=== PATIENT | male | born 1945 | race Caucasian/White ===

== ENCOUNTER 2016-11-10 10:08 | Emergency (ER) | payer MEDICARE, MEDICAID ==
[~2016-11-10] VITALS: Ht 170.2 cm; Wt 72.7 kg
[~2016-11-10 10:08] MED LIST: AMLO2.5T2 PO; ASPI325T4 PO/NG; DOCU240C53 PO; METO25TA35 PO; NICO1PAT4 TD; PANT40TA3 PO; SIMV20TA NG
[2016-11-10 10:13] VITALS: BP 145/78
[2016-11-10] MEDS ORDERED: DIPHENHYDRAMINE 25 MG CAPSULE ONE (11:48)
[2016-11-10] MEDS ORDERED: FAMOTIDINE 20 MG TABLET ONE (11:48)
[2016-11-10] MEDS ORDERED: FAMOTIDINE 20 MG TABLET PO ONE (12:00)
[2016-11-10] MEDS ORDERED: DIPHENHYDRAMINE 25 MG CAPSULE PO ONE (12:00)
[2016-11-10 12:21] LABS: BLOOD UREA NITROGEN 8 mg/dL (7-18)
[2016-11-10 12:25] LABS: ASPARTATE AMINO TRANSFERASE 9 U/L (15-37)
[2016-11-10 12:56] LABS: DIFF TOTAL CELLS COUNTED 100 CELL DIFF
[2016-11-10 12:57] LABS: VERIFY COUNTS? YES
== END 2016-11-10 12:48 | disposition home or self-care (01) ==
LOC: ED 12:42
DX: L24.5 Irritant contact dermatitis due to other chemical products (principal); I10 Essential (primary) hypertension; Z86.73 Personal history of transient ischemic attack (TIA), and cerebral infarction without residual deficits
CPT/HCPCS: 36415; 80053; 85025; 99284; J7512; Q0163